=== PATIENT | male | born 1990 | race Caucasian/White ===

== ENCOUNTER 2017-05-06 16:37 | Emergency (ER) | payer BC, SELFPAY ==
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
== END 2017-05-06 18:19 | disposition home or self-care (01) ==
LOC: ERS 16:37
DX: S06.0X9A Concussion with loss of consciousness of unspecified duration, initial encounter (principal); S16.1XXA Strain of muscle, fascia and tendon at neck level, initial encounter; V43.52XA Car driver injured in collision with other type car in traffic accident, initial encounter
CPT/HCPCS: 70450; 72125

== ENCOUNTER 2017-05-06 20:04 | Emergency (ER) | payer SELFPAY ==
[2017-05-06 21:12] LABS: #Basophils 0.1 thou/uL (0.0-0.2); #Eosinphils 0.3 thou/uL (0.0-0.7); #Lymphocytes 2.7 thou/uL (1.20-3.40); #Monocytes 0.7 thou/uL (0.11-0.59); #Neutrophils 6.6 thou/uL (1.40-6.50); %Basophils 0.6 % (0.0-1.0); %Eosinophils 2.5 % (0.0-10.0); %Lymphocytes 26.3 % (21.0-51.0); %Monocytes 6.9 % (0.0-10.0); Hematocrit 43.8 % (42.0-52.0); Mean Platelet Volume 6.5 fL (7.4-10.4); Red Blood Cell (RBC) Count 4.78 mill/uL (4.70-6.10); White Blood Cell (WBC) Count 10.3 thou/uL (4.8-10.8)
[2017-05-06 21:31] LABS: ALT (SGPT) 28 U/L (8-55); AST (SGOT) 20 U/L (5-34); Alkaline Phosphatase 81 U/L (40-150); Anion Gap 14 mmol/L (10-20); BUN (Urea Nitrogen) 14 mg/dL (8.9-20.6); Bilirubin, Total 0.9 mg/dL (0.2-1.2); CK (CPK) 304 U/L (30-200); Calc. Creatinine Clearance 0 mL/min (70-130); Calcium 9.2 mg/dL (7.8-10.44); Carbon Dioxide 26 mmol/L (22-29); Chloride 107 mmol/L (98-107); Estimated GFR-MDRD 63; Lipase 24 U/L (8-78); Protein, Total 7.1 g/dL (6.0-8.3)
[2017-05-06 21:36] LABS: Troponin I Less than 0.010 ng/mL (< 0.028)
== END 2017-05-06 21:46 | disposition home or self-care (01) ==
LOC: ERS 20:04
DX: S00.33XA Contusion of nose, initial encounter (principal); S00.12XA Contusion of left eyelid and periocular area, initial encounter; Y04.8XXA Assault by other bodily force, initial encounter
CPT/HCPCS: 36415; 80053; 82553; 83690; 84484; 85025; 93005

== ENCOUNTER 2017-05-10 09:36 | Emergency (ER) | payer SELFPAY | END 2017-05-10 10:50 | disposition home or self-care (01) | LOC: ERS 09:36 | DX: F07.81 Postconcussional syndrome (principal) | CPT/HCPCS: 99283 ==

== ENCOUNTER 2017-06-04 11:31 | Emergency (ER) | payer SELFPAY ==
[2017-06-04] MEDS ORDERED: CEFAZOLIN/Water 2 GM/20 ML SYRINGE ONE (11:46)
[2017-06-04] MEDS ORDERED: Morphine 2 MG/ML SYRINGE ONE (11:46)
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
== END 2017-06-04 14:56 | disposition home or self-care (01) ==
LOC: ERS 11:31
DX: S91.302A Unspecified open wound, left foot, initial encounter (principal); W32.0XXA Accidental handgun discharge, initial encounter
CPT/HCPCS: 96374; 96375; J2270

== ENCOUNTER 2017-06-07 11:29 | Emergency (ER) | payer SELFPAY ==
[2017-06-07] MEDS ORDERED: Adacel (T-DAP) 0.5 ML VIAL ONE (11:45)
[2017-06-07 11:49] LABS: #Eosinphils 0.5 thou/uL (0.0-0.7); #Lymphocytes 3.1 thou/uL (1.20-3.40); #Monocytes 0.6 thou/uL (0.11-0.59); #Neutrophils 4.1 thou/uL (1.40-6.50); %Basophils 0.5 % (0.0-1.0); %Monocytes 7.1 % (0.0-10.0); Hematocrit 42.6 % (42.0-52.0); Red Blood Cell (RBC) Count 4.55 mill/uL (4.70-6.10); White Blood Cell (WBC) Count 8.3 thou/uL (4.8-10.8)
[2017-06-07 12:01] LABS: Lactic Acid - Sepsis 1.7 mmol/L (0.5-2.2)
[2017-06-07 12:07] LABS: ALT (SGPT) 20 U/L (8-55); AST (SGOT) 18 U/L (5-34); Alkaline Phosphatase 79 U/L (40-150); Anion Gap 11 mmol/L (10-20); BUN (Urea Nitrogen) 7 mg/dL (8.9-20.6); Bilirubin, Total 0.4 mg/dL (0.2-1.2); Calc. Creatinine Clearance 0 mL/min (70-130); Calcium 8.9 mg/dL (7.8-10.44); Carbon Dioxide 24 mmol/L (22-29); Chloride 108 mmol/L (98-107); Estimated GFR-MDRD Greater than 90; Globulin 3.1 g/dL (2.4-3.5); Lipase 23 U/L (8-78); Protein, Total 6.9 g/dL (6.0-8.3)
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
[2017-06-07] MEDS ORDERED: Ketorolac Tromethamine 30 MG/ML VIAL ONE (12:39)
[2017-06-07] MEDS ORDERED: Lidocaine 1% PF 5 ML VIAL ONE ×2 (13:08→13:35)
[2017-06-07] MEDS ORDERED: Lidocaine 1% w/Epinephrine 1:200K 30 ML VIAL ONE (13:10)
[2017-06-07 13:31] LABS: Bilirubin Negative (Negative); Blood, Urine Negative (Negative); Glucose, Urine (Dipstick) Negative (Negative); Ketone, Urine Negative (Negative); Nitrite Negative (Negative); Protein, Urine (Dipstick) Negative (Neg-Trace); Urobilinogen 0.2 mg/dL (0.2-1.0)
[2017-06-07] MEDS ORDERED: ISOVUE-370 76%-LOCM 1 ML ONE (15:52)
== END 2017-06-07 17:07 | disposition home or self-care (01) ==
LOC: ERS 11:29
DX: S01.311A Laceration without foreign body of right ear, initial encounter (principal); S20.212A Contusion of left front wall of thorax, initial encounter; S20.211A Contusion of right front wall of thorax, initial encounter; S00.93XA Contusion of unspecified part of head, initial encounter; S00.01XA Abrasion of scalp, initial encounter; M51.9 Unspecified thoracic, thoracolumbar and lumbosacral intervertebral disc disorder; J45.909 Unspecified asthma, uncomplicated; Z23 Encounter for immunization; V89.2XXA Person injured in unspecified motor-vehicle accident, traffic, initial encounter; Y92.411 Interstate highway as the place of occurrence of the external cause
CPT/HCPCS: 12013; 70450; 71010; 71260; 72125; 74177; 80053; 80307; 81003; 83605; 83690; 85025; 90471; 90715; 96374; G0390; J1885; J2001